=== PATIENT | female | born 1980 | race Caucasian/White ===

== ENCOUNTER 2020-07-31 17:54 | Emergency (ER) | payer OTHER ==
[2020-07-31] MEDS ORDERED: CYCLOBENZAPRINE10 MG PO (20:05)
[2020-07-31] MEDS ORDERED: NAPROXEN500 MG PO (20:05)
== END 2020-07-31 20:17 | disposition home or self-care (01) ==
LOC: FER 17:54
DX: S13.4XXA Sprain of ligaments of cervical spine, initial encounter (principal); S50.02XA Contusion of left elbow, initial encounter; M25.552 Pain in left hip; M25.512 Pain in left shoulder; R10.32 Left lower quadrant pain; V43.52XA Car driver injured in collision with other type car in traffic accident, initial encounter; Y92.410 Unspecified street and highway as the place of occurrence of the external cause
CPT/HCPCS: 71045; 72125; 73030; 73080; J1885